=== PATIENT | female | born 1970 | race Caucasian/White ===

== ENCOUNTER 2018-09-11 09:32 | Emergency (ER) | payer MEDICARE, MEDICAID ==
[~2018-09-11] VITALS: Ht 160 cm; Wt 61.2 kg
[2018-09-11 09:38] VITALS: BP 112/73
== END 2018-09-11 10:24 | disposition home or self-care (01) ==
LOC: ED 10:18
DX: K08.89 Other specified disorders of teeth and supporting structures (principal); F17.200 Nicotine dependence, unspecified, uncomplicated
CPT/HCPCS: 99283

== ENCOUNTER → 2019-03-26 | Outpatient (CLI) | payer MEDICARE, MEDICAID ==
[~2019-03-26] MED LIST: ALBU18HF INH; ATOM25CA PO; BIOTIN PO; FIBER PO; HYDR-3652 PO; IBUP-1223 PO; LAMO200T3 PO; METH750T87 PO; MULT-154 PO; RANITIDINE PO; TRAZ300T2 PO
[2019-03-26 14:58] LABS: MICROSCOPIC NOT IND
[2019-03-26 15:08] LABS: CULTURE INDICATED? NO
[2019-03-26 15:24] LABS: BASOPHILS # (AUTO) 0.09 x10^3/uL (0-0.1); BASOPHILS % (AUTO) 1 % (0-1); EOSINOPHILS # (AUTO) 0.09 x10^3/uL (0-0.4); EOSINOPHILS % (AUTO) 1 % (1-7); LYMPHOCYTES # (AUTO) 2.43 x10^3/uL (1-3.4); LYMPHOCYTES % (AUTO) 32 % (22-44); MD NO; MEAN CORPUSCULAR HEMOGLOBIN 29.8 pg (27.0-34.8); MEAN CORPUSCULAR HGB CONC 31.6 g/dL (32.4-35.8); MEAN CORPUSCULAR VOLUME 94.4 fL (80-100); MEAN PLATELET VOLUME 8.5 fL (7.4-10.4); MONOCYTES # (AUTO) 0.46 x10^3/uL (0.2-0.8); MONOCYTES % (AUTO) 6 % (2-9); NEUTROPHILS # (AUTO) 4.51 x10^3/uL (1.8-6.8); NEUTROPHILS % (AUTO) 60 % (42-75); PLATELET COUNT 286 x10^3/uL (130-400); RED BLOOD COUNT 4.74 x10^6/uL (3.82-5.3); RED CELL DISTRIBUTION WIDTH 12.6 % (9.6-15.2)
[2019-03-26 15:28] LABS: INTERNATIONAL NORMALIZED RATIO 0.95 (0.93-1.1)
[2019-03-26 15:30] LABS: ANION GAP 6 mmol/L (5-15); CALCIUM 9.2 mg/dL (8.5-10.1); CHLORIDE 107 mmol/L (98-107)
[2019-03-26 15:32] LABS: CREATININE 0.81 mg/dL (0.55-1.02)
== END | disposition home or self-care (01) ==
LOC: STAR 13:39
PROVIDERS: ATTEND Neurological Surgery
DX: Z01.818 Encounter for other preprocedural examination (principal); S13.150A Subluxation of C4/C5 cervical vertebrae, initial encounter; R94.31 Abnormal electrocardiogram [ECG] [EKG]; M48.02 Spinal stenosis, cervical region; M54.12 Radiculopathy, cervical region; X58.XXXA Exposure to other specified factors, initial encounter; Y93.89 Activity, other specified; Y92.89 Other specified places as the place of occurrence of the external cause; Y99.8 Other external cause status; M47.812 Spondylosis without myelopathy or radiculopathy, cervical region
CPT/HCPCS: 36415; 71046; 72050; 80048; 81003; 85025; 85610; 85730; 93005

== ENCOUNTER 2019-04-08 09:18 | Inpatient (IN) | payer MEDICARE, MEDICAID ==
[2019-03-26 14:22] VITALS: BP 117/82
[~2019-04-08] VITALS: Ht 162.6 cm; Wt 64.2 kg
[~2019-04-08 09:18] MED LIST changes: +BACITRACIN 50,000 UNIT ONE; +BUPIVACAINE/PF 0.5% ONE; +THROMBIN 20,000 UNIT VIAL TP ONE
[2019-04-08] MEDS ORDERED: LACTATED RINGERS 1,000 ML IV SCH (09:52)
[2019-04-08] MEDS ORDERED: SCOPOLAMINE PATCH, 1.5MG PATCH.TD72 TD ONE (10:00)
[2019-04-08] MEDS ORDERED: ACETAMINOPHEN 500 MG TABLET PO ONE (10:00)
[2019-04-08] MEDS ORDERED: GABAPENTIN 300 MG CAPSULE PO ONE (10:00)
[2019-04-08] MEDS ORDERED: DIAZEPAM 5 MG TABLET PO ONE (10:00)
[2019-04-08] MEDS ORDERED: PROPOFOL 50 ML ONE (12:06)
[2019-04-08] MEDS ORDERED: FENTANYL PF 250 MCG/5ML ONE ×2 (12:07→12:38)
[2019-04-08] MEDS ORDERED: MIDAZOLAM 1 MG/ML, 2ML ONE (12:07)
[2019-04-08] MEDS ORDERED: DEXAMETHASONE 4 MG/ML, 1ML ONE ×3 (12:09→12:43)
[2019-04-08] MEDS ORDERED: CEFAZOLIN 1,000 MG ONE (12:10)
[2019-04-08] MEDS ORDERED: ONDANSETRON 2MG/ML, 2ML ONE (12:10)
[2019-04-08] MEDS ORDERED: ROCURONIUM 10MG/ML,5ML ONE (12:17)
[2019-04-08] MEDS ORDERED: SUCCINYLCHOLINE 20 MG/ML, 10ML ONE ×3 (12:42)
[2019-04-08] MEDS ORDERED: hydrALAzine 20 MG/ML, 1ML IV PRN (13:00)
[2019-04-08] MEDS ORDERED: PROMETHAZINE 25 MG/ML, 1ML IV PRN (13:00)
[2019-04-08] MEDS ORDERED: FENTANYL PF 100 MCG/2ML IV PRN (13:00)
[2019-04-08] MEDS ORDERED: EPHEDRINE 50 MG/ML, 1ML IVPush PRN (13:00)
[2019-04-08] MEDS ORDERED: MIDAZOLAM 1 MG/ML, 2ML IV PRN (13:00)
[2019-04-08] MEDS ORDERED: PROMETHAZINE 12.5 MG SUPP PR PRN (13:00)
[2019-04-08] MEDS ORDERED: ONDANSETRON ODT 8 MG PO PRN (13:00)
[2019-04-08] MEDS ORDERED: LABETALOL 5MG/ML, 20ML IV PRN (13:00)
[2019-04-08] MEDS ORDERED: MEPERIDINE/PF 25MG/0.5ML IVPush PRN (13:00)
[2019-04-08] MEDS ORDERED: HALOPERIDOL 5 MG/ML IV PRN (13:00)
[2019-04-08] MEDS ORDERED: MORPHINE SULFATE 4 MG/ML, 1ML IVPush PRN (13:00)
[2019-04-08] MEDS ORDERED: DIAZEPAM 5 MG/ML, 2ML IVPush PRN (13:00)
[2019-04-08] MEDS ORDERED: ALBUTEROL SULFATE 2.5 MG/3 ML NPPB PRN (13:00)
[2019-04-08] MEDS ORDERED: ONDANSETRON 2MG/ML, 2ML IV PRN ×2 (13:00→15:30)
[2019-04-08] MEDS ORDERED: OXYcodone 5 MG/5 ML ORAL.SOL UDC PO PRN (13:00)
[2019-04-08] MEDS ORDERED: HYDROmorphone 2 MG/ML, 1ML ONE (14:07)
[2019-04-08] MEDS ORDERED: FENTANYL PF 100 MCG/2ML ONE (14:07)
[2019-04-08] MEDS ORDERED: OXYcodone 5 MG/5 ML ORAL.SOL UDC ONE (14:08)
[2019-04-08] MEDS: HYDROmorphone 2 MG/ML, 1ML IVPush PRN ×3 (14:20→14:50)
[2019-04-08] MEDS ORDERED: BISACODYL 10 MG SUPP PR PRN (15:30)
[2019-04-08] MEDS ORDERED: CYCLOBENZAPRINE 10 MG TABLET PO PRN (15:30)
[2019-04-08] MEDS ORDERED: PROMETHAZINE 25 MG/ML, 1ML IM PRN (15:30)
[2019-04-08] MEDS ORDERED: MAGNESIUM HYDROXIDE 8%, 30ML UDC PO PRN (15:30)
[2019-04-08] MEDS ORDERED: HYDROmorphone 2 MG/ML, 1ML IVPush PRN (15:30)
[2019-04-08] MEDS ORDERED: DIPHENHYDRAMINE 50 MG/ML, 1ML IM PRN (15:30)
[2019-04-08] MEDS ORDERED: DIPHENHYDRAMINE 50 MG CAPSULE PO PRN (15:30)
[2019-04-08] MEDS ORDERED: DIPHENHYDRAMINE 50 MG/ML, 1ML IVPush PRN (15:30)
[2019-04-08] MEDS ORDERED: HYDROcodone/APAP 5/325 TABLET PO PRN (15:30)
[2019-04-08] MEDS: LABETALOL 5MG/ML, 20ML IV SCH ×2 (15:50→23:30)
[2019-04-08] MEDS ORDERED: ALBUTEROL SULFATE 2.5MG/0.5ML NPPB PRN (16:00)
[2019-04-08] MEDS: METHOCARBAMOL 750 MG TABLET PO SCH (16:20)
[2019-04-08] MEDS: LAMOTRIGINE 200 MG TABLET PO SCH (16:34)
[2019-04-08] MEDS: NS + 20MEQ KCL 1,000 ML IV SCH (16:34)
[2019-04-08] MEDS: OXYcodone/APAP 5/325MG TABLET PO PRN ×3 (16:34→21:52)
[2019-04-08 20:12] VITALS: BP 95/53
[2019-04-08] MEDS: CALCIUM POLYCARBOPHIL 625 MG TABLET PO SCH (20:23)
[2019-04-08] MEDS: CEFAZOLIN PMX 1GM/50ML 50 ML IVPB SCH (20:24)
[2019-04-08] MEDS ORDERED: TRAZODONE 150MG TABLET PO SCH (21:00)
[2019-04-08] MEDS ORDERED: ZOLPIDEM 5MG TABLET PO PRN (21:00)
[2019-04-08] MEDS ORDERED: LAMOTRIGINE 200 MG TABLET PO SCH (21:00)
[2019-04-09 00:02] VITALS: BP 90/50
[2019-04-09] MEDS: METHOCARBAMOL 750 MG TABLET PO SCH ×2 (01:48→07:58)
[2019-04-09] MEDS: OXYcodone/APAP 5/325MG TABLET PO PRN ×2 (01:48→05:40)
[2019-04-09] MEDS: NS + 20MEQ KCL 1,000 ML IV SCH (03:30)
[2019-04-09] MEDS: CEFAZOLIN PMX 1GM/50ML 50 ML IVPB SCH (04:09)
[2019-04-09 04:30] VITALS: BP 93/51
[2019-04-09] MEDS: LAMOTRIGINE 200 MG TABLET PO SCH (05:16)
[2019-04-09] MEDS: LABETALOL 5MG/ML, 20ML IV SCH (07:45)
[2019-04-09] MEDS: CALCIUM POLYCARBOPHIL 625 MG TABLET PO SCH (07:58)
[2019-04-09 08:10] VITALS: BP 98/63
[2019-04-09] MEDS ORDERED: MULTIVITAMIN 1 TABLET PO SCH (09:00)
[2019-04-09] MEDS ORDERED: SENNA/DOCUSATE TABLET PO SCH (09:00)
[2019-04-09] MEDS ORDERED: OXYC5TAB2 PO (09:06)
[2019-04-09] MEDS ORDERED: METH750T87 PO (09:07)
[2019-04-09] MEDS ORDERED: ENOXAPARIN 40 MG/0.4 ML SQ SCH ×2 (14:00)
== END 2019-04-09 09:30 | disposition home or self-care (01) | DRG 473 ==
LOC: ORIP 09:18 → 4NOR 15:08 → DCLOUNGE 04-09 09:19
PROVIDERS: ADMIT Neurological Surgery; ATTEND Neurological Surgery
PROC: 0RB30ZZ Excision of Cervical Vertebral Disc, Open Approach (ICD-10-PCS; 2019-04-08)
PROC: 01N10ZZ Release Cervical Nerve, Open Approach (ICD-10-PCS; 2019-04-08)
PROC: 00NW0ZZ Release Cervical Spinal Cord, Open Approach (ICD-10-PCS; 2019-04-08)
PROC: 4A11X4G Monitoring of Peripheral Nervous Electrical Activity, Intraoperative, External Approach (ICD-10-PCS; 2019-04-08)
PROC: 0RG10A0 Fusion of Cervical Vertebral Joint with Interbody Fusion Device, Anterior Approach, Anterior Column, Open Approach (ICD-10-PCS; principal; 2019-04-08 11:00)
DX: M48.02 Spinal stenosis, cervical region (principal); M43.12 Spondylolisthesis, cervical region; M47.22 Other spondylosis with radiculopathy, cervical region; I10 Essential (primary) hypertension; J45.909 Unspecified asthma, uncomplicated; G43.909 Migraine, unspecified, not intractable, without status migrainosus; G89.4 Chronic pain syndrome; F32.9 Major depressive disorder, single episode, unspecified; M19.90 Unspecified osteoarthritis, unspecified site; Z83.6 Family history of other diseases of the respiratory system; Z81.8 Family history of other mental and behavioral disorders; Z82.0 Family history of epilepsy and other diseases of the nervous system; Z82.61 Family history of arthritis
CPT/HCPCS: 72040; C1713; G0378; J0690; J1100; J1170; J2250; J2405; J2704; J3010; J3480; J0330; J7120